=== PATIENT | female | born 1995 | race Caucasian/White ===

== ENCOUNTER 2020-07-29 14:14 | Emergency (ER) | payer MEDICAID ==
[2020-07-29] MEDS ORDERED: Ondansetron 4 MG/2 ML SDV IVPUSH ONE (15:29)
[2020-07-29] MEDS ORDERED: HYDROmorphone 1 MG/ML Syringe IVPUSH STA (15:29)
[2020-07-29] MEDS ORDERED: Sodium Chloride 0.9% 1,000 ML IV SCH (15:30)
[2020-07-29] MEDS: Sodium Chloride 0.9% 10 ML Syringe FLUSH PRN ×2 (15:39→17:09)
--- NOTE | 2020-07-29 15:42 | EDM.PDOC ---
ED HPI GENERAL MEDICAL PROBLEM - General Chief Complaint: Abdominal Pain Stated Complaint: ABDOMINAL/BACK PAIN Time Seen by Provider: 07/29/20 14:59 Source of Information: Reports: Patient, RN Notes Reviewed History Limitations: Reports: No Limitations - History of Present Illness INITIAL COMMENTS - FREE TEXT/NARRATIVE: Patient is a 24-year-old female who presents to the ED for the evaluation of her abdomen and back pain. Patient notes that 3 weeks ago she was in [place] and had a laparoscopic procedure to check for endometriosis. She notes that although the biopsies were negative. Everything was going well after that, but she stated last night, she started with some pelvic pain, and is now having back pain. She has not taken anything for pain management. She denies any nausea or vomiting. Patient notes that the pain is sharp and stabbing, and when the pain is at its worst, it can drop her to her knees. She states that the pain sometimes does worsen with walking. She is also complaining some urinary frequency. She had no fevers or chills, cough or shortness of breath. She does not think she be as she just finished up her menses and started a new pack of control. ANODE ADJUSTER is Dr. Mcmahan in [place]. The mother notes that the family does have history of gallbladder issues so they were concerned that it could be gallbladder as well. Patient states that the pain does seem to radiate to her right upper back under her rib cage. Treatments LABORER SALVAGE: Reports: Other (see below) Other Treatments LABORER SALVAGE: none Abdomen Pain Score (Numeric/FACES): 7 Lower Back Pain Score (Numeric/FACES): 10 - Related Data Allergies Allergy/AdvReac Type Severity Reaction Status Date / Time No Known Allergies Allergy Verified 02/27/14 13:35 Home Meds: Home Meds Albuterol Sulfate [Proair Hfa] 2 - 3 applic INH DAILY 07/29/20 [History] Cefdinir [Omnicef] 300 mg PO BID 7 Days #14 cap 07/29/20 [Rx] Past Medical History - Past Health History Medical/Surgical History: Denies Medical/Surgical History Cardiovascular History: Reports: Hypertension ANODE ADJUSTER History: Reports: Other (See Below) Other ANODE ADJUSTER History: laproscopic procedure to check for endometriosid-negative Musculoskeletal History: Reports: Other (See Below) Other Musculoskeletal History: sciliosis Psychiatric History: Reports: Anxiety, Depression Social & Family History - Tobacco Use Tobacco Use Status *Q: Current Every Day Tobacco User Years of Tobacco use: 10 Packs/Tins Daily: 0.2 - Caffeine Use Caffeine Use: Reports: Soda, Tea - Recreational Drug Use Recreational Drug Use: No ED ROS GENERAL - Review of Systems Review Of Systems: Comprehensive ROS is negative, except as noted in HPI. ED EXAM, GI/ABD - Physical Exam Exam: See Below Exam Limited By: No Limitations General Appearance: Alert, WD/WN, No Apparent Distress (pt is laying crosswise across ER cot and states that this seems to help relieve the pain on her back) Eyes: Bilateral: Normal Appearance Respiratory/Chest: No Respiratory Distress, Lungs Clear, Normal Breath Sounds, No Accessory Muscle Use, Chest Non-Tender Cardiovascular: Normal Peripheral Pulses, Regular Rate, Rhythm, No Edema GI/Abdominal Exam: Normal Bowel Sounds, Soft, No Distention, No Mass, Tender (generalized, worse suprapubic area) Back Exam: Normal Inspection, Full Range of Motion. No: CVA Tenderness (L), CVA Tenderness (R), Muscle Spasm, Paraspinal Tenderness, Vertebral Tenderness Extremities: Normal Inspection, Normal Capillary Refill Neurological: Alert, Oriented, Normal Cognition, No Motor/Sensory Deficits Psychiatric: Normal Affect, Normal Mood Skin Exam: Warm, Dry, Intact, Normal Color, No Rash Course - Vital Signs Last Recorded V/S: Last Vital Signs Temp 100.2 F 07/29/20 14:47 Pulse 88 07/29/20 14:47 Resp 20 07/29/20 14:47 BP 153/108 H 07/29/20 14:47 Pulse Ox 98 07/29/20 14:47 - Orders/Labs/Meds Orders: Active Orders 24 hr Category Date Time Status Peripheral IV Care [RC] . DIRECTED Care 07/29/20 15:30 Ordered Abdomen Pelvis w Cont [CT] Stat Exams 07/29/20 15:29 Ordered CULTURE URINE [RM] Routine Lab 07/29/20 16:17 Ordered Sodium Chloride 0.9% [Normal Saline] 1,000 ml Med 07/29/20 15:30 Ordered IV ASDIRECTED Sodium Chloride 0.9% [Saline Flush] Med 07/29/20 15:30 Ordered 10 ml FLUSH ASDIRECTED PRN cefTRIAXone [Rocephin] 2 gm Med 07/29/20 16:29 Ordered Sodium Chloride 0.9% [Normal Saline] 100 ml IV ONETIME Peripheral IV Insertion Adult [OM.PC] Routine Oth 07/29/20 15:30 Ordered Medication Orders Sodium Chloride (Normal Saline) 1,000 mls @ 999 mls/hr IV ASDIRECTED ABDOUL Last Admin: 07/29/20 15:38 Dose: 999 mls/hr Documented by: REUBEN Ceftriaxone Sodium 2 gm/ (Sodium Chloride) 100 mls @ 200 mls/hr IV ONETIME ONE Stop: 07/29/20 16:58 Sodium Chloride (Saline Flush) 10 ml FLUSH ASDIRECTED PRN PRN Reason: Keep Vein Open Last Admin: 07/29/20 15:39 Dose: 10 ml Documented by: REUBEN Labs: Laboratory Tests 07/29/20 07/29/20 07/29/20 Range/Units 15:00 15:00 15:15 WBC 8.78 (3.98-10.04) K/mm3 RBC 4.57 (3.98-5.22) M/mm3 Hgb 14.1 (11.2-15.7) gm/dl Hct 43.0 (34.1-44.9) % MCV 94.1 (79.4-94.8) fl MCH 30.9 (25.6-32.2) pg MCHC 32.8 (32.2-35.5) g/dl RDW Std Deviation 45.1 (36.4-46.3) fL Plt Count 189 (182-369) K/mm3 MPV 11.3 (9.4-12.3) fl Neutrophils % (Manual) 71 H (40-60) % Band Neutrophils % 0 (0-10) % Lymphocytes % (Manual) 21 (20-40) % Atypical Lymphs % 0 % Monocytes % (Manual) 7 (2-10) % Eosinophils % (Manual) 1 (0.7-5.8) % Basophils % (Manual) 0 L (0.1-1.2) Platelet Estimate Adequate Plt Morphology Comment Normal RBC Morph Comment Normal Sodium (136-145) mEq/L Potassium (3.5-5.1) mEq/L Chloride (98-107) mEq/L Carbon Dioxide (21-32) mEq/L Anion Gap (5-15) BUN (7-18) mg/dL Creatinine (0.55-1.02) mg/dL Est Cr Clr Drug Dosing mL/min Estimated GFR (MDRD) (>60) mL/min BUN/Creatinine Ratio (14-18) Glucose (74-106) mg/dL Calcium (8.5-10.1) mg/dL Total Bilirubin (0.2-1.0) mg/dL GGT (5-55) U/L AST (15-37) U/L ALT (14-59) U/L Alkaline Phosphatase (46-116) U/L Total Protein (6.4-8.2) g/dl Albumin (3.4-5.0) g/dl Globulin gm/dL Albumin/Globulin Ratio (1-2) Lipase (73-393) U/L Urine Color Light yellow (Yellow) Urine Appearance Slt cloudy H (Clear) Urine pH 7.5 (5.0-8.0) Ur Specific Crawford 1.020 (1.005-1.030) Urine Protein 1+ H (Negative) Urine Glucose (UA) Negative (Negative) Urine Ketones Negative (Negative) Urine Occult Blood 2+ H (Negative) Urine Nitrite Negative (Negative) Urine Bilirubin Negative (Negative) Urine Urobilinogen 0.2 (0.2-1.0) Ur Leukocyte Esterase 2+ H (Negative) Urine RBC 5-10 H (0-5) /hpf Urine WBC 40-50 H (0-5) /hpf Ur Squamous Epith Cells 5-10 H (0-5) /hpf Urine Bacteria Few (FEW) /hpf Urine Mucus Not seen (FEW) /hpf Urine HCG, Qual Negative (NEGATIVE) 07/29/20 Range/Units 15:15 WBC (3.98-10.04) K/mm3 RBC (3.98-5.22) M/mm3 Hgb (11.2-15.7) gm/dl Hct (34.1-44.9) % MCV (79.4-94.8) fl MCH (25.6-32.2) pg MCHC (32.2-35.5) g/dl RDW Std Deviation (36.4-46.3) fL Plt Count (182-369) K/mm3 MPV (9.4-12.3) fl Neutrophils % (Manual) (40-60) % Band Neutrophils % (0-10) % Lymphocytes % (Manual) (20-40) % Atypical Lymphs % % Monocytes % (Manual) (2-10) % Eosinophils % (Manual) (0.7-5.8) % Basophils % (Manual) (0.1-1.2) Platelet Estimate Plt Morphology Comment RBC Morph Comment Sodium 142 (136-145) mEq/L Potassium 3.8 (3.5-5.1) mEq/L Chloride 105 (98-107) mEq/L Carbon Dioxide 25 (21-32) mEq/L Anion Gap 15.8 H (5-15) BUN 8 (7-18) mg/dL Creatinine 0.8 (0.55-1.02) mg/dL Est Cr Clr Drug Dosing 90.47 mL/min Estimated GFR (MDRD) > 60 (>60) mL/min BUN/Creatinine Ratio 10.0 L (14-18) Glucose 83 (74-106) mg/dL Calcium 9.0 (8.5-10.1) mg/dL Total Bilirubin 0.8 (0.2-1.0) mg/dL GGT 22 (5-55) U/L AST 16 (15-37) U/L ALT 20 (14-59) U/L Alkaline Phosphatase 86 (46-116) U/L Total Protein 7.7 (6.4-8.2) g/dl Albumin 4.1 (3.4-5.0) g/dl Globulin 3.6 gm/dL Albumin/Globulin Ratio 1.1 (1-2) Lipase 70 L (73-393) U/L Urine Color (Yellow) Urine Appearance (Clear) Urine pH (5.0-8.0) Ur Specific Crawford (1.005-1.030) Urine Protein (Negative) Urine Glucose (UA) (Negative) Urine Ketones (Negative) Urine Occult Blood (Negative) Urine Nitrite (Negative) Urine Bilirubin (Negative) Urine Urobilinogen (0.2-1.0) Ur Leukocyte Esterase (Negative) Urine RBC (0-5) /hpf Urine WBC (0-5) /hpf Ur Squamous Epith Cells (0-5) /hpf Urine Bacteria (FEW) /hpf Urine Mucus (FEW) /hpf Urine HCG, Qual (NEGATIVE) Meds: Medications Generic Name Dose Route Start Last Admin Trade Name Freq PRN Reason Stop Dose Admin Sodium Chloride 1,000 mls @ 999 mls/hr 07/29/20 15:30 07/29/20 15:38 Normal Saline IV 999 mls/hr ASDIRECTED ABDOUL Administration Ceftriaxone Sodium 2 gm/ 100 mls @ 200 mls/hr 07/29/20 16:29 Sodium Chloride IV 07/29/20 16:58 ONETIME ONE Sodium Chloride 10 ml 07/29/20 15:30 07/29/20 15:39 Saline Flush FLUSH 10 ml ASDIRECTED PRN Administration Keep Vein Open Discontinued Medications Generic Name Dose Route Start Last Admin Trade Name Freq PRN Reason Stop Dose Admin Diatrizoate Meglum/Diatrizoate Sod 60 ml 07/29/20 16:11 Gastrografin 37% PO 07/29/20 16:12 ONETIME ONE Hydromorphone HCl 1 mg 07/29/20 15:29 07/29/20 15:38 Dilaudid IVPUSH 07/29/20 15:30 1 mg ONETIME STA Administration Iopamidol 100 ml 07/29/20 16:11 Isovue-300 (61%) IVPUSH 07/29/20 16:12 ONETIME ONE Iopamidol 25 ml 07/29/20 16:11 Isovue-300 (61%) IVPUSH 07/29/20 16:12 ONETIME ONE Ondansetron HCl 4 mg 07/29/20 15:29 07/29/20 15:38 Zofran IVPUSH 07/29/20 15:30 4 mg ONETIME ONE Administration - Re-Assessments/Exams Free Text/Narrative Re-Assessment/Exam: 07/29/20 15:43 Patient presents to the ED for evaluation of her ongoing abdomen pain. For today's purposes we will get labs, abdomen pelvis CT with IV contrast. Patient denies any chance of . Patient does have a temperature of 100.2 F, with some urinary frequency likely she could have ongoing urinary issues. But the mother was concerned about gallbladder issues as well. Nonetheless labs will be obtained so we can try to delineate what is causing her issues. 07/29/20 17:47 His laboratory evaluation demonstrates a normal white count 8.78, patient did have a fever when she presented to the ER, however it was mild. Her urinalysis was grossly positive for a possible pyelonephritis she will be given 2 g Rocephin IV for management the patient CT demonstrates no acute findings. We will get the patient going home as she was feeling much better. Departure - Departure Time of Disposition: 17:48 Disposition: Home, Self-Care 01 Condition: Good Clinical Impression: UTI (urinary tract infection) Qualifiers: Urinary tract infection type: acute pyelonephritis Qualified Code(s): N10 - Acute pyelonephritis - Discharge Information *PRESCRIPTION DRUG MONITORING PROGRAM REVIEWED*: No *COPY OF PRESCRIPTION DRUG MONITORING REPORT IN PATIENT GODWIN: No Instructions: Pyelonephritis, Adult, [id number] Forms: ED Department Discharge Additional Instructions: You have been evaluated in the ED for your urinary symptoms. Your urinalysis was consistent with an acute urinary tract infection. Your urine was sent for culture, and you will be notified if you should need a change in your antibiotic. This may take up to 48 hours to result. You may take AZO for urinary pain relief. This is available over the counter, and can be attained at any retail store like [employer] or any pharmacy. Please be aware that this medication will make your urine turn orange. You have been given a prescription for Omnicef (cefdinir), 300 mg 1 tablet 2 times a day for 7 days. Please note that the antibiotics can take up to 48 hours to start working. You were given IV antibiotics in the ER, to kick start your antibiotic routine. Your CT demonstrated no other acute findings. Recommend when you are feeling better, you follow-up with your regular care provider and get a gallbladder ultrasound if you still suspicious that you might have gallbladder issues. Please increase your oral fluid intake and try to stay adequately hydrated. Please return to the ED if your symptoms change or worsen. Sepsis Event Note (ED) - Evaluation Sepsis Screening Result: No Definite Risk - Focused Exam Vital Signs: Vital Signs Temp Pulse Resp BP Pulse Ox 07/29/20 14:47 100.2 F 88 20 153/108 H 98 - My Orders Last 24 Hours: My Active Orders 07/29/20 15:29 Abdomen Pelvis w Cont [CT] Stat 07/29/20 15:30 Peripheral IV Care [RC] . DIRECTED Sodium Chloride 0.9% [Normal Saline] 1,000 ml IV ASDIRECTED Sodium Chloride 0.9% [Saline Flush] 10 ml FLUSH ASDIRECTED PRN Peripheral IV Insertion Adult [OM.PC] Routine 07/29/20 16:17 CULTURE URINE [RM] Routine 07/29/20 16:29 cefTRIAXone [Rocephin] 2 gm Sodium Chloride 0.9% [Normal Saline] 100 ml IV ONETIME - Assessment/Plan Last 24 Hours: My Active Orders 07/29/20 15:29 Abdomen Pelvis w Cont [CT] Stat 07/29/20 15:30 Peripheral IV Care [RC] . DIRECTED Sodium Chloride 0.9% [Normal Saline] 1,000 ml IV ASDIRECTED Sodium Chloride 0.9% [Saline Flush] 10 ml FLUSH ASDIRECTED PRN Peripheral IV Insertion Adult [OM.PC] Routine 07/29/20 16:17 CULTURE URINE [RM] Routine 07/29/20 16:29 cefTRIAXone [Rocephin] 2 gm Sodium Chloride 0.9% [Normal Saline] 100 ml IV ONETIME
[2020-07-29] MEDS ORDERED: Diatrizoate Meglumine/Diatrizoate Sodium 37% 120 ML Bottle PO ONE (16:11)
[2020-07-29] MEDS ORDERED: Iopamidol 612 MG/ML 100 ML Bottle IVPUSH ONE (16:11)
[2020-07-29] MEDS ORDERED: Iopamidol 612 MG/ML 50 ML SDV IVPUSH ONE (16:11)
[2020-07-29] MEDS ORDERED: cefTRIAXone 2 GM in Sodium Chloride 0.9% 100 ML IV ONE (16:29)
[2020-07-29] MEDS ORDERED: Acetaminophen/HYDROcodone 325-5 MG Tab PO ONE (17:55)
--- NOTE | 2020-07-30 07:57 | CT ---
CT abdomen and pelvis Technique: Multiple axial sections were obtained from above the dome of the diaphragm inferiorly through the pubic symphysis. Study was performed with IV and oral contrast. Delayed images were also obtained through the bladder. Reconstructed coronal and sagittal images were obtained. Findings: Visualized lung bases show nothing acute. Liver shows no focal parenchymal abnormality. Spleen appears within normal limits. Gallbladder contains no calcified gallstones. Adrenal glands showed no mass. Pancreas is within normal limits. Right kidney shows a low density lesion within the mid to lower pole measuring approximately 1.3 cm. This is most likely due to a small cyst. Small cyst is also felt to be present within the right kidney measuring 9 mm. Left kidney is slightly decreased in enhancement as compared to the right kidney. Difficult to exclude a mild pyelonephritis if patient has correlating symptoms. Aorta shows no aneurysm. No retroperitoneal adenopathy or mesenteric abnormalities are seen. Appendix is seen which is normal. No pelvic mass or adenopathy is identified. Delayed images show contrast within the distal ureters and within the bladder. Bone window settings were reviewed which show scoliosis within the spine. No acute osseous finding is appreciated. Impression: 1. Questionable decreased contrast enhancement of the left kidney as compared to the right side. Difficult to completely exclude pyelonephritis. Please correlate with the patient's symptoms. 2. Other findings believed to be incidental as noted above. Diagnostic code #3 Questionably disagree with preliminary report from [facility], finalized on 07/29/20, 6:37 PM SAFEMAKER
== END 2020-07-29 18:29 | disposition home or self-care (01) ==
LOC: SUPCPDRO 14:14 → JD.ED 14:14
DX: N10 Acute pyelonephritis (principal); I10 Essential (primary) hypertension; M41.9 Scoliosis, unspecified; Z72.0 Tobacco use
CPT/HCPCS: 36415; 74177; 80053; 81001; 81025; 82977; 83690; 85007; 85027; 87086; 87088; 87186; 96365; 96375; 99284; A9270; J0696; J1170; J2405; J7030; Q9963; Q9967